=== PATIENT | female | born 1940 | race Caucasian/White ===

== ENCOUNTER 2016-03-15 11:49 | Day surgery (SDC) | payer OTHER ==
[~2016-03-15] VITALS: Ht 157.5 cm; Wt 101.8 kg
[2016-03-15 12:30] VITALS: Ht 157.5 cm; Wt 101.8 kg
[2016-03-15] MEDS ORDERED: GLIM4TAB PO (12:49)
[2016-03-15] MEDS ORDERED: NEBI5TAB9 PO (12:49)
[2016-03-15] MEDS ORDERED: MTF1000T PO (12:49)
[2016-03-15 13:03] VITALS: BP 174/74; PULSE 59; RESP 16
[2016-03-15] MEDS ORDERED: MIDAZOLAM 1 MG/ML 2 ML INJ ONE (14:24)
[2016-03-15] MEDS ORDERED: FENTAnyl 50 MCG/ML VIAL ONE (14:24)
[2016-03-15 14:39] VITALS: BP 152/63; RESP 20
--- NOTE | 2016-03-17 07:06 | GILP ---
DATE OF PROCEDURE: 03/15/2016 PREOPERATIVE DIAGNOSIS: Screening colonoscopy. POSTOPERATIVE DIAGNOSES: 1. 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 2 One polyp at 30 cm, about 8 mm in size, removed by snare technique and biopsy also done and retri eved. 3. Internal hemorrhoids, grade II. DESCRIPTION OF PROCEDURE: The patient was put in left lateral decubitus after obtaining informed co nsent, was sedated, monitored on oximetry, EKG, and blood pressure. Very carefully sedated the patient with total of 3 mg IV Versed and 75 mcg of fentanyl. An Olympus video colonoscope was advanced after rectal exam, and he scope was advanced to cecum, ileocecal milo ve, appendiceal opening identified. Cecum, ascending colon, transverse colon, descending colon and throughout the colon, melanosis coli, moderate to severe noted. The examination thoroughly done dem onstrated polyp that I had seen at [address] and already done the biopsy. This was found on the way out and this was captured with a snare technique and coagulated and retrieved and sent fo r histopathological exam. Retroflexion and antegrade exam in the rectum demonstrated grade II inter nal hemorrhoids. Upon removal of scope, patient had no complications. PLAN: Will be to await for biopsy report. Repeat colonoscopy in 3 years and advised her to continu e MiraLax for constipation. Dictated By: FRANSISCO HANNA Conf#: [id number] DID#: [id number] CC: Joel Acevedo MD;*End*
== END 2016-03-15 15:53 | disposition home or self-care (01) ==
LOC: GIL 11:49
PROVIDERS: ATTEND Internal Medicine
DX: Z12.11 Encounter for screening for malignant neoplasm of colon (principal); K63.5 Polyp of colon; K64.1 Second degree hemorrhoids; E11.9 Type 2 diabetes mellitus without complications; I10 Essential (primary) hypertension
CPT/HCPCS: 45380; 82962; 88305; J2250; J3010